=== PATIENT | female | born 1985 | race Caucasian/White ===

== ENCOUNTER 2020-05-14 18:28 | Emergency (ER) | payer OTHER ==
[2020-05-14 18:52] VITALS: BP 139/79; PULSE 78; TEMP 98.1; BMI 26.4
[2020-05-14] MEDS ORDERED: ONDANSETRON *ODT* 4 MG TABLET ONE (19:59)
[2020-05-14] MEDS ORDERED: ONDANSETRON *ODT* 4 MG TABLET SL ONE (20:01)
[2020-05-14] MEDS ORDERED: METOCLOPRAMIDE HCL INJECTION 10 MG/2 ML VIAL IVPB ONE (21:15)
[2020-05-14] MEDS ORDERED: SODIUM CHLORIDE 1,000 ML IV STA (21:16)
[2020-05-14] MEDS ORDERED: METOCLOPRAMIDE HCL INJECTION 10 MG/2 ML VIAL ONE (21:27)
== END 2020-05-14 22:35 | disposition home or self-care (01) ==
LOC: FER 18:28
PROC: 3E033NZ Introduction of Analgesics, Hypnotics, Sedatives into Peripheral Vein, Percutaneous Approach (ICD-10-PCS; principal; 2020-05-14)
PROC: 3E033GC Introduction of Other Therapeutic Substance into Peripheral Vein, Percutaneous Approach (ICD-10-PCS; 2020-05-14)
PROC: 3E0337Z Introduction of Electrolytic and Water Balance Substance into Peripheral Vein, Percutaneous Approach (ICD-10-PCS; 2020-05-14)
DX: G43.001 Migraine without aura, not intractable, with status migrainosus (principal)
CPT/HCPCS: 70450-TC; 99285-25; Q0162